=== PATIENT | male | born 1975 | race Caucasian/White ===

== ENCOUNTER 2019-10-27 11:02 | Emergency (ER) | payer MEDICAID, OTHER ==
[~2019-10-27] VITALS: Ht 172.7 cm; Wt 90.0 kg
[2019-10-27 11:29] VITALS: BP 135/89
[2019-10-27] MEDS ORDERED: TRIA15CR61 TOP (12:53)
[2019-10-27] MEDS ORDERED: SULF1TAB49 PO (12:53)
[2019-10-27] MEDS ORDERED: TETanus/Pertussis (Acell)/Diphther VAC/PF (Tdap-Adult) 0.5ml syringe IMVAC ONE (13:00)
== END 2019-10-27 13:44 | disposition home or self-care (01) ==
LOC: ER 11:02
DX: S51.802A Unspecified open wound of left forearm, initial encounter (principal); Z79.899 Other long term (current) drug therapy; X58.XXXA Exposure to other specified factors, initial encounter; Y93.89 Activity, other specified; Y92.89 Other specified places as the place of occurrence of the external cause; Y99.8 Other external cause status
CPT/HCPCS: 90471; 90715; 99283